=== PATIENT | male | born 1955 | race Caucasian/White ===

== ENCOUNTER → 2018-06-12 | Outpatient (RCR) | payer MEDICARE, OTHER | LOC: PT 06-01 11:08 | PROVIDERS: ATTEND Specialist | DX: M17.11 Unilateral primary osteoarthritis, right knee (principal) | CPT/HCPCS: 97010 ×2; 97110 ×6; 97140; 97161; G8978; G8979 ==

== ENCOUNTER 2018-07-10 13:00 | Outpatient (RCR) | payer MEDICARE, OTHER | END 2018-07-12 | LOC: PT 13:00 | PROVIDERS: ATTEND Specialist | DX: M17.11 Unilateral primary osteoarthritis, right knee (principal); M25.561 Pain in right knee; M25.661 Stiffness of right knee, not elsewhere classified | CPT/HCPCS: 97010 ×3; 97110 ×11; 97140 ×2; G8978; G8979 ==

== ENCOUNTER 2018-08-11 13:00 | Outpatient (RCR) | payer MEDICARE, OTHER | END 2018-08-12 | LOC: PT 13:00 | PROVIDERS: ATTEND Specialist | DX: M17.11 Unilateral primary osteoarthritis, right knee (principal); M25.561 Pain in right knee; M25.661 Stiffness of right knee, not elsewhere classified | CPT/HCPCS: 97010 ×5; 97110 ×8; 97112; 97139; G8978; G8979 ==

== ENCOUNTER 2018-08-14 13:05 | Outpatient (RCR) | payer MEDICARE, OTHER | END 2018-09-11 | LOC: PT 13:05 | PROVIDERS: ATTEND Specialist | DX: M17.11 Unilateral primary osteoarthritis, right knee (principal); M25.561 Pain in right knee; M25.661 Stiffness of right knee, not elsewhere classified | CPT/HCPCS: 97110; 97139; G8979; G8980 ==